=== PATIENT | female | born 1990 | race Caucasian/White ===

== ENCOUNTER 2025-06-29 05:24 | Emergency (ER) | payer OTHER, SELFPAY ==
[2025-06-29 05:26] VITALS: BP 139/89
--- NOTE | 2025-06-29 05:58 | ED.GENMED ---
History of Present Illness
General
Chief Complaint: Abdominal Pain
Source: patient
Exam Limitations: none
Time Seen by Provider: 06/29/25 05:53
History of Present Illness
History of Present Illness:
35-year-old female complaining of upper abdominal pain starting late last evening. This is followed by recurrent nausea vomiting and frequent diarrhea. No blood or mucus in the diarrhea. No fever. No flank or back pain. No urinary symptoms. No
history of same. No travel history. No unusual food ingestion. No one else is ill at home symptoms are moderate in nature
Past History
Past History
ED Past Medical History: Hypothyroidism and Other (Umbilical hernia)
ED Past Surgical History: Other (Umbilical hernia repair/eye surgeries)
Review of Systems
Review of Systems
All Other Systems: Not applicable
Constitutional: Denies fever
Respiratory: Reports no symptoms
Cardiac: Reports no symptoms
Phy Exam
Physical Exam
Physical Exam:
GENERAL: Alert and oriented in no apparent distress
EYE: Orbits normal.
NECK: Supple
CARDIAC: Regular rate and rhythm without any obvious murmurs.
LUNGS: Clear breath sounds,normal
ABDOMEN: Soft, no distention. Bowel sounds present. Mild to moderate gastric tenderness. Very minimal right and left upper quadrant tenderness. No rebound or guarding no mass or hernia. No lower abdominal tenderness
NEUROLOGICAL: Alert and oriented , grossly non-focal
SKIN: Warm and dry, no rash or lesion, no discoloration, skin intact.
MUSCULOSKELETAL: No edema,no deformity.Good color
PSYCH: Normal and appropriate interaction.
Course
Orders/Labs/Results
Orders:
Orders
06/29/25 05:32
IV Insert/Care/Rem.- Treatment PRN
Straight cath- Treatment ONCE
Test Result ONCE
06/29/25 05:42
Complete Blood Count/With Diff Urgent
Comprehensive Metabolic Panel Urgent
HCG, Serum Qualitative Screen Urgent
Comment: .
Lipase Urgent
06/29/25 05:50
Urinalysis Reflex To Culture Urgent
Date Specimen was Collected: 06/29/25
Time Specimen was Collected: 05:49
Urine Microscopic Reflex Cult Urgent
06/29/25 05:58
CT Abd/pel W Iv And Oral Contr Urgent
Comment:
Reason For Exam: Diffuse upper abdominal pain with vomiting
IV Insert/Care/Rem.- Treatment PRN
0.9% Sodium Chloride 1000 ml [Nss] 1,000 ml IV BOLUS
Iohexol [Omnipaque] See Protocol PO NOW STA
Ondansetron Injectable [Zofran] 4 mg IV NOW STA
06/29/25 07:11
Ketorolac [Toradol] 15 mg IV NOW STA
Ondansetron Injectable [Zofran] 4 mg IV NOW STA
Abnormal Lab Results
06/29/25 06/29/25
05:42 05:50
WBC 11.5 H 10^3/uL
(4.8-10.8)
Absolute Neuts (auto) 10.3 H 10^3/uL
(1.4-6.5)
Absolute Lymphs (auto) 0.6 L 10^3/uL
(1.2-3.4)
Neutrophils % 90.1 H %
(42.2-75.2)
Lymphocytes % 5.2 L %
(20.5-51.1)
Chloride 109 H mmol/L
(98-107)
Glucose 119 H mg/dl
(70-99)
Urine Ketones 3+ A
(Negative)
Urine Bacteria (Reflex) Few A
(Negative)
Urine Albumin (Reflex) 2+ A
(Neg - Trace)
06/29/25 05:42
06/29/25 05:42
Vital Signs
Initial and Last Documented VS:
Initial Vital Signs
Temp Pulse Resp BP Pulse Ox
98.2 F 66 20 139/89 100
06/29/25 05:26 06/29/25 05:26 06/29/25 05:26 06/29/25 05:26 06/29/25 05:26
Last Documented Vital Signs
Temp Pulse Resp BP Pulse Ox
98.2 F 74 16 137/96 98
06/29/25 07:35 06/29/25 07:35 06/29/25 07:35 06/29/25 07:35 06/29/25 07:35
MDM/Problems Addressed
Differential Diagnosis Includes:
Symptom complex most consistent with viral syndrome or gastroenteritis. However considerations would also include internal hernia, gallbladder less likely. Labs pending. Fluids nausea meds CT scan. Will hold on ultrasound of the gallbladder
given that symptoms are all or mostly epigastric. Would reconsider this if her LFTs or lipase are elevated
*Radiology
Radiology exam reviewed: radiology read reviewed (Small bowel and ascending colon consistent with enteritis. Appendix not visualized but no inflammatory changes consistent with acute appendicitis)
*Pulse Oximetry
SaO2: 100
Oxygen Mode of Delivery: Room air
Patient hypoxic: no
*Critical Care Note
Total Time (30-74mins, 75-104mins- exclusive of procedures): Not Applicable
Update Note
Update Note:
Labs with mild leukocytosis. Enteritis. Nothing to support appendicitis or any surgical findings. Feels better. Medically stable for discharge to follow-up
ED Attending Note
-
Portions of this chart may have been created with voice recognition software.� Occasional wrong word or��sound alike� substitutions may have occurred due to the inherent limitations of voice recognition software.
Discharge Plan
Departure
Patient Disposition: Home (Routine Discharge)
Date of Disposition: 06/29/25
Time of Disposition: 09:09
Patient with high blood pressure during this ER visit?: Yes
Discharge Problem:
Abdominal pain nausea vomiting, Enterocolitis
Instructions: Nausea and Vomiting, Adult (DC), Abdominal Pain, BLOOD PRESSURE
Prescriptions:
New
ondansetron 4 mg tablet,disintegrating
4 mg PO TIDPRN PRN (Reason: nausea/vomiting) Qty: 10 0RF
Referrals:
HOSSEIN YUAN RN [Family Provider, Family Practice] - Follow up in 2-3 days
Activity Restrictions/Additional Instructions:
Light diet the next 24 to 48 hours
Zofran for nausea as needed
Recheck with increased pain or vomiting or if symptoms have not resolved in the next 1 to 2 days
The prescription was sent to your pharmacy
Interventions
Interventions:
*Risk Screen - Suicide Last Done: 06/29/25 05:26
*General Assessment Last Done: 06/29/25 05:26
*Neglect/Abuse Screening Last Done: 06/29/25 05:26
*ED- Fall Risk Assessment Last Done: 06/29/25 05:26
*ED COVID-19 Vaccine History Last Done: 06/29/25 05:26
*ED Influenza Vaccine History Last Done: 06/29/25 05:26
NV-Jfkmep-Adhuunhnmu Assessment Last Done: 06/29/25 06:00
Discharge Date and Time
Print Language: KOSOVAN
[2025-06-29 06:05] LABS: Hematocrit 40.4 % (37.0-47.0); Hemoglobin 13.7 g/dL (12.0-16.0); Mean Corp Hgb Conc. 33.9 g/dL (33.0-37.0); Mean Corpuscular Volume 86.5 fL (81.0-99.0); Nucleated Red Blood Cells % 0 %; Platelet Count 301 10^3/uL (130-400); Red Cell Dist. Width 14.0 % (11.5-14.5)
[2025-06-29] MEDS: NSS 1000 IV (06:13)
[2025-06-29 06:14] LABS: Urine Character Clear (Clear)
[2025-06-29] MEDS: OMNIPAQUE 50 ML PO (06:14)
[2025-06-29] MEDS: ZOFRAN 4 MG IV ×2 (06:14→07:30)
[2025-06-29 06:16] LABS: HCG, Serum Qualitative Screen Negative
[2025-06-29 06:20] LABS: ALT (SGPT) 18 U/L (0-35); AST (SGOT) 22 U/L (14-36); Albumin 4.6 g/dl (3.5-5.0); Alkaline Phosphatase 59 U/L (38-126); Blood Urea Nitrogen 12 mg/dl (7-17); Calcium 9.1 mg/dl (8.4-10.2); Carbon Dioxide 22 mmol/L (22-30); Chloride 109 mmol/L (98-107); Glucose 119 mg/dl (70-99); Lipase 50 U/L (23-300); Potassium 4.1 mmol/L (3.5-5.1); Sodium 139 mmol/L (135-145); Total Protein 7.5 g/dl (6.3-8.2); eGFR > 60.00
[2025-06-29 06:43] LABS: Urine Red Blood Cell 0-2 /HPF (0-2); Urine White Cell 0-2 /HPF (0-5)
[2025-06-29] MEDS: TORADOL 15 MG IV (07:31)
[2025-06-29 07:35] VITALS: BP 137/96; BMI 30.9
[2025-06-29 11:00] VITALS: BP 109/66
== END 2025-06-29 11:00 | disposition home or self-care (01) ==
LOC: EMR 05:24
PROVIDERS: Emergency Medicine; EMERGENCY PHYSICIAN Emergency Medicine; FAMILY PHYSICIAN Nurse Practitioner Family
DX: K52.9 Noninfective gastroenteritis and colitis, unspecified (principal); E03.9 Hypothyroidism, unspecified
CPT/HCPCS: 99284; 96374; 96375; 96376; 96361; 74177; 80053; 81003; 81015; 83690; 84703; 85025; Q9967